=== PATIENT | male | born 1930 | race Caucasian/White ===

== ENCOUNTER → 2016-07-24 | Outpatient (CLI) | payer OTHER ==
--- NOTE | 2016-07-24 17:25 | DX ---
Single-View Abdomen History: Nephrolithiasis, N20. Comparison: Prior outside June 2016. No report. 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 Moderate dextroscoliosis. There are several calculi overlying the right kidney with at least four calculi in the upper and lowe r pole regions measuring up to 5 mm, similar to previous study. On the previous study, however, there was a calculus overlying the right psoas muscle measuring 7 mm which may have represented a right ur eteral calculus which is no longer identified. A 2 mm calculus also overlying the lower pole of the l eft kidney which is difficult to compare due to the large amount of stool on previous study. Due to c alcified granulomata in the spleen and overlying stool, it is difficult to compare to the prior study . Moderate dextroscoliosis. Impressions 1. Bilateral nephrolithiasis. 2. Splenic granulomata. 3. Possible passage of previous right ureterolithiasis although there is no prior history for compari son or report from the prior outside study. 4. Consider additional ultrasound or CT imaging, if clinically indicated.
== END ==
LOC: BRMIMAGING 16:40
PROVIDERS: ATTEND Specialist
DX: N20.0 Calculus of kidney (principal); D73.89 Other diseases of spleen
CPT/HCPCS: 74000-PO